=== PATIENT | male | born 1960 ===

== ENCOUNTER 2016-10-25 08:18 | Outpatient (CLI) | payer BC ==
--- NOTE | 2016-10-25 18:48 | DIAGNOSTIC IMAGING REPORT ---
PROCEDURE: CT IAC/PF/ORBIT W/OUT CONTRAST INDICATION: BILATERAL HEARING LOSS TECHNIQUE: Axial scans with coronal re-formations. COMPARISON: None. FINDINGS: Right ear: Normal middle ear without inflammatory mass. Normal ossicles without dislocation or erosion. No evidence of otosclerosis. Normal cochlea. Normal external and internal auditory canals. Normal mastoids. Left ear: Punctate calcification of the left tympanic membrane posteriorly. There is a 3.5 mm soft tissue density along the anterior aspect of the tympanic membrane which extends to the malleolus, associated with focal bony erosion. There is also a synechia paralleling the tympanic membrane extending to the malleolus. These findings could represent resolution of inflammatory process or possibly small cholesteatoma. No evidence of otosclerosis. Normal cochlea. Normal external and internal auditory canals. Normal mastoids. Moderate left TMJ degenerative changes. IMPRESSION: 1. Small soft tissue mass along the anterior aspect of the left tympanic membrane extending to the malleolus associated synechia also extending to the malleolus. This may represent a resolving inflammatory process but cholesteatoma is a consideration 2. Left tympanic membrane focal calcification 3. Normal right ear 4. Moderate left TMJ degenerative changes
== END 2016-10-25 23:00 ==
LOC: CT SRH 08:18
DX: H73.892 Other specified disorders of tympanic membrane, left ear (principal)